=== PATIENT | male | born 1990 | race African-American/Black ===

== ENCOUNTER 2016-05-18 13:36 | Emergency (ER) | payer MEDICAID, OTHER ==
--- NOTE | 2016-05-18 14:29 | UC ---
General HPI - HPI Summary HPI Summary: Patient has had HZ, fatigue, muscle aches, chills and sweats. sore throat that has gone away. SOB on exertion, - History of Current Complaint Chief Complaint: UCRespiratory Stated Complaint: LOSS OF VOICE COLD SYMPTOMS Time Seen by Provider: 05/18/16 14:24 Hx Obtained From: Patient Onset/Duration: Sudden Onset, Lasting Days Timing: Constant Onset Severity: Mild Current Severity: Moderate Associated Signs & Symptoms: Positive: Cough, Fever, Headache, Wheezing - Allergy/Home Medications Allergies/Adverse Reactions: Allergies Allergy/AdvReac Type Severity Reaction Status Date / Time Iodine Allergy Severe Difficulty Verified 10/13/14 22:35 Breathing PMH/Surg Hx/FS Hx/Imm Hx Previously Healthy: Yes Endocrine History Of: Denies: Diabetes, Thyroid Disease Cardiovascular History Of: Denies: Cardiac Disorders, Hypertension Respiratory History Of: Reports: Asthma Denies: COPD GI/ History Of: Denies: Ulcer Other History Of: Negative For: Anticoagulant Therapy - Surgical History Surgical History: Yes Surgery Procedure, Year, and Place: right arm surgery - Family History Known Family History: Negative: Cardiac Disease, Hypertension - Social History Alcohol Use: Occasionally Substance Use Type: Marijuana Smoking Status (MU): Never Smoked Tobacco Review of Systems Constitutional: Fever, Chills, Fatigue Skin: Negative Eyes: Negative ENT: Sore Throat, Ear Ache Respiratory: Shortness Of Breath, Cough Cardiovascular: Negative Gastrointestinal: Negative Genitourinary: Negative Motor: Negative Neurovascular: Negative Musculoskeletal: Negative Neurological: Negative Psychological: Negative All Other Systems Reviewed And Are Negative: Yes Physical Exam Triage Information Reviewed: Yes Appearance: Well-Nourished, Ill-Appearing, Pain Distress Vital Signs: Initial Vital Signs Temp 97.3 F 05/18/16 14:03 Pulse 97 05/18/16 14:03 Resp 18 05/18/16 14:03 Pulse Ox 100 05/18/16 14:03 Vital Signs Reviewed: Yes Eye Exam: Normal Eyes: Positive: Conjunctiva Clear ENT Exam: Normal ENT: Positive: Pharyngeal erythema, TM bulging, TM red Dental Exam: Normal Neck exam: Normal Neck: Positive: Supple, Nontender, Enlarged Nodes @ - bilateral cervical Respiratory Exam: Normal Respiratory: Positive: Chest non-tender, No respiratory distress, No accessory muscle use, Wheezing, Inspiration Cardiovascular Exam: Normal Cardiovascular: Positive: RRR, No Murmur, Pulses Normal Abdominal Exam: Normal Abdomen Description: Positive: Nontender, No Organomegaly, Soft Bowel Sounds: Positive: Present Musculoskeletal Exam: Normal Musculoskeletal: Positive: Strength Intact, ROM Intact, No Edema Neurological Exam: Normal Neurological: Positive: Alert, Muscle Tone Normal Psychological Exam: Normal Skin Exam: Normal Course/Dx - Course Course Of Treatment: hx obtained, exam performed, meds reviewed, rapid flu negative. prednisone prescribed for wheezing. - Differential Dx - Multi-Symptom Provider Diagnoses: viral syndrome. wheezing Discharge - Discharge Plan Condition: Stable Disposition: HOME Patient Education Materials: Viral Syndrome (ED) Additional Instructions: Take the medication as prescribed. Increase your fluid intake and get plenty of rest. Tylenol and Ibuprofen for pain and fever.
== END 2016-05-18 14:41 | disposition home or self-care (01) ==
LOC: UCEAST 13:36
DX: B34.9 Viral infection, unspecified (principal); R06.2 Wheezing; F12.90 Cannabis use, unspecified, uncomplicated
CPT/HCPCS: 99212; G0463

== ENCOUNTER 2017-11-13 11:17 | Emergency (ER) | payer OTHER ==
[2017-11-13] MEDS ORDERED: Lidocaine 2.5%/Prilocain 2.5%* 5 GM TUBE TOPICAL ONE (13:16)
[2017-11-13 14:31] VITALS: BP 126/80
--- NOTE | 2017-11-13 17:26 | ED ---
Skin Complaint - HPI Summary HPI Summary: Patient's 27-year-old male presenting to the ED with a large left mass to the left side of the chin which has been present for over a month and recently enlarged this afternoon. - History of Current Complaint Chief Complaint: EDRashSkinAbscess Time Seen by Provider: 11/13/17 11:30 Stated Complaint: ABSCESS ON FACE Pain Intensity: 5 Pain Scale Used: 0-10 Numeric - Allergy/Home Medications Allergies/Adverse Reactions: Allergies Allergy/AdvReac Type Severity Reaction Status Date / Time iodine Allergy Difficulty Verified 11/13/17 11:25 Breathing shellfish derived Allergy Difficulty Verified 11/13/17 11:25 Breathing PMH/Surg Hx/FS Hx/Imm Hx Endocrine/Hematology History: Denies: Hx Anticoagulant Therapy, Hx Diabetes, Hx Thyroid Disease Cardiovascular History: Denies: Hx Hypertension, Other Cardiovascular Problems/Disorders - DENIES Respiratory History: Reports: Hx Asthma Denies: Hx Chronic Obstructive Pulmonary Disease (COPD), Other Respiratory Problems/Disorders - DENIES GI History: Denies: Hx Ulcer - Surgical History Surgery Procedure, Year, and Place: right arm surgery - Immunization History Date of Tetanus Vaccine: unknown Date of Influenza Vaccine: no Infectious Disease History: No Infectious Disease History: Denies: Hx Hepatitis, Hx Human Immunodeficiency Virus (HIV), History Other Infectious Disease, Traveled Outside the [place] in Last 30 Days - Family History Known Family History: Negative: Cardiac Disease, Hypertension - Social History Alcohol Use: Occasionally Substance Use Type: Reports: Marijuana Smoking Status (MU): Never Smoked Tobacco Physical Exam Vital Signs On Initial Exam: Initial Vitals Temp Pulse Resp BP Pulse Ox 97.5 F 92 16 156/80 99 11/13/17 11:20 11/13/17 11:20 11/13/17 11:20 11/13/17 11:20 11/13/17 11:20 Diagnostics - Vital Signs Vital Signs Temp Pulse Resp BP Pulse Ox 11/13/17 14:30 97.3 F 65 16 126/80 97 11/13/17 11:20 97.5 F 92 16 156/80 99 - Laboratory Lab Statement: Any lab studies that have been ordered have been reviewed, and results considered in the medical decision making process. Discharge - Discharge Plan Condition: Stable Disposition: HOME Prescriptions: Sulfamethox/Trimethoprim DS* [Bactrim DS 800/160 TAB*] 1 tab PO BID #14 tab MDD 2 Patient Education Materials: Abscess (ED) Referrals: Reid Saenz MD [Primary Care Provider] - Additional Instructions: as discussed, please follow-up with PCP as scheduled Bactrim twice daily 7 days Moist heat/warm compresses to the area as much as possible If any symptoms worsen, return to the ED immediately - Billing Disposition and Condition Condition: STABLE Disposition: Home
== END 2017-11-13 14:30 | disposition home or self-care (01) ==
LOC: ED 11:17
DX: L02.01 Cutaneous abscess of face (principal)
CPT/HCPCS: 99281; A9270-GY

== ENCOUNTER 2017-11-17 14:41 | Emergency (ER) | payer OTHER ==
[2017-11-17 15:01] VITALS: BP 128/79
== END 2017-11-17 15:59 | disposition left against medical advice (07) ==
LOC: ED 14:41
DX: L02.01 Cutaneous abscess of face (principal); Z53.21 Procedure and treatment not carried out due to patient leaving prior to being seen by health care provider

== ENCOUNTER 2018-04-19 07:57 | Emergency (ER) | payer OTHER ==
[2018-04-19 08:32] LABS: Influenza A Molecular POSITIVE (Negative)
[2018-04-19] MEDS ORDERED: Ketorolac INJ* 30 MG/ML 1 ML VIAL IV PUSH ONE (08:39)
[2018-04-19] MEDS ORDERED: NS 0.9% 1000 ML** 1,000 ML IV ONE (08:39)
[2018-04-19] MEDS ORDERED: Ondansetron INJ* 2 MG/ML VIAL IV ONE (08:39)
--- NOTE | 2018-04-19 09:06 | ED ---
Influenza-Like Illness - HPI Summary HPI Summary: patient is a 27-year-old male with no past significant medical history presenting to the ED with flulike symptoms. He endorses a 2 day history of diarrhea, nausea, vomiting, sweats, chills, body aches. He does endorse a mild cough with mild production. He did not receive the flu vaccine this year. He endorses some sore throat, but secondary to coughing. He denies any abdominal pain. He states symptoms are not better or worse with positioning arrest. He has been trying NyQuil, which helps him sleep, but states this does not help his body aches. He is a nonsmoker, drinks occasionally. - History of Current Complaint Chief Complaint: EDFluSymptoms Time Seen by Provider: 04/19/18 08:08 Hx Obtained From: Patient Onset/Duration: Sudden Onset Severity: Moderate Associated Signs & Symptoms: Fever, T Max - [id number], F/C, Myalgia, Cough, Sore Throat, Nasal Congestion, Headache, Vomiting Related Hx: Possible Flu/Infectious Exposure - Risk Factors Influenza Risk Factors: Negative - Allergy/Home Medications Allergies/Adverse Reactions: Allergies Allergy/AdvReac Type Severity Reaction Status Date / Time iodine Allergy Difficulty Verified 04/19/18 08:06 Breathing shellfish derived Allergy Difficulty Verified 04/19/18 08:06 Breathing Home Medications: Home Medications Dm/Acetaminophen/Doxylamine [Vicks Nyquil Cold-Flu Liquid] 30 ml PO BEDTIME PRN 04/19/18 [History Confirmed 04/19/18] PMH/Surg Hx/FS Hx/Imm Hx Previously Healthy: Yes Endocrine/Hematology History: Denies: Hx Anticoagulant Therapy, Hx Diabetes, Hx Thyroid Disease Cardiovascular History: Denies: Hx Hypertension, Other Cardiovascular Problems/Disorders - DENIES Respiratory History: Reports: Hx Asthma Denies: Hx Chronic Obstructive Pulmonary Disease (COPD), Other Respiratory Problems/Disorders - DENIES GI History: Denies: Hx Ulcer - Surgical History Surgery Procedure, Year, and Place: right arm surgery - Immunization History Date of Tetanus Vaccine: unknown Date of Influenza Vaccine: no Infectious Disease History: No Infectious Disease History: Denies: Hx Hepatitis, Hx Human Immunodeficiency Virus (HIV), History Other Infectious Disease, Traveled Outside the [place] in Last 30 Days - Family History Known Family History: Positive: Respiratory Disease Negative: Cardiac Disease, Hypertension - Social History Occupation: Employed Full-time Lives: With Family Alcohol Use: Occasionally Hx Substance Use: Yes Substance Use Type: Reports: Marijuana Hx Tobacco Use: Yes Smoking Status (MU): Former Smoker Review of Systems Positive: Fever, Chills, Fatigue, Skin Diaphoresis Negative: Blurred Vision, Diplopia, Drainage Positive: Sore Throat. Negative: Ear Ache Negative: Palpitations, Chest Pain Positive: Cough. Negative: Shortness Of Breath Positive: Vomiting, Diarrhea, Nausea. Negative: Abdominal Pain Genitourinary: Negative Positive: no symptoms reported, see HPI Positive: Myalgia. Negative: Arthralgia Negative: Rash, Bruising Negative: Headache, Weakness, Paresthesia, Numbness Psychological: Normal All Other Systems Reviewed And Are Negative: Yes Physical Exam Triage Information Reviewed: Yes Vital Signs On Initial Exam: Initial Vitals Temp Pulse Resp BP Pulse Ox 98.9 F 91 16 146/97 97 04/19/18 08:03 04/19/18 08:03 04/19/18 08:03 04/19/18 08:03 04/19/18 08:03 Vital Signs Reviewed: Yes Appearance: Positive: Well-Appearing, Well-Nourished Skin: Positive: Warm, Skin Color Reflects Adequate Perfusion, Diaphoretic Head/Face: Positive: Normal Head/Face Inspection Neck: Positive: Supple, No Lymphadenopathy Respiratory/Lung Sounds: Positive: Clear to Auscultation Cardiovascular: Positive: RRR, Pulses are Symmetrical in both Upper and Lower Extremities Musculoskeletal: Positive: Normal, Strength/ROM Intact Neurological: Positive: Speech Normal Psychiatric: Positive: Affect/Mood Appropriate Diagnostics - Vital Signs Vital Signs Temp Pulse Resp BP Pulse Ox 04/19/18 08:12 87 98 04/19/18 08:03 98.9 F 91 16 146/97 97 - Laboratory Lab Results: Lab Results 04/19/18 Range/Units 08:28 Influenza A (Rapid) Positive A (Negative) Lab Statement: Any lab studies that have been ordered have been reviewed, and results considered in the medical decision making process. Flu Symptom Course/Dx - Course Course Of Treatment: Treatment, the patient's evaluated for flulike symptoms. Influenza swab obtained and is positive. He is repleted with fluids, 1 L normal saline. Zofran given and Toradol given as well. Patient is feeling improved and is okay for discharge at this time. As symptoms have been present 48 hours +, he will not be given Tamiflu at this time. He is encouraged fluids and rest while he is given a note for work and is okay with plan and discharged. - Diagnoses Differential Diagnosis/HQI/PQRI: Positive: Influenza, Pneumonia Provider Diagnoses: Influenza A Discharge - Sign-Out/Discharge Documenting (check all that apply): Patient Departure Patient Received Moderate/Deep Sedation with Procedure: No - Discharge Plan Condition: Stable Disposition: HOME Prescriptions: Ondansetron ODT TAB* [Zofran 4 MG Odt TAB*] 4 mg PO Q6H PRN #12 tab.odt MDD 4 PRN Reason: Nausea Patient Education Materials: Influenza (ED) Forms: *Work Release Referrals: Reid Saenz MD [Primary Care Provider] - Additional Instructions: You've been diagnosed with influenza Drink plenty of fluids Tylenol and ibuprofen for discomfort and body aches Tylenol 650 mg and ibuprofen 600 mg, use these intermittently Rest as much as possible - Billing Disposition and Condition Condition: STABLE Disposition: Home
[2018-04-19 11:09] VITALS: BP 137/82
== END 2018-04-19 11:08 | disposition home or self-care (01) ==
LOC: ED 07:57
DX: J10.1 Influenza due to other identified influenza virus with other respiratory manifestations (principal); J45.909 Unspecified asthma, uncomplicated; Z88.3 Allergy status to other anti-infective agents; Z91.013 Allergy to seafood; Z87.891 Personal history of nicotine dependence
CPT/HCPCS: 36415; 86703; 96361; 96374; 96375; 99283; J1885; J2405

== ENCOUNTER 2018-04-26 10:08 | Emergency (ER) | payer OTHER ==
[2018-04-26 10:36] VITALS: BP 121/71
--- NOTE | 2018-04-26 11:03 | UC ---
Respiratory Complaint HPI - HPI Summary HPI Summary: 27-year-old male presents with complaints of persistent cough. States on 2018 he developed flulike symptoms and was evaluated by his primary care provider on 04/19/2018 and tested positive for influenza A. Reports he has been having some nausea and posttussive emesis for which his primary care provider prescribed ondansetron as needed. Patient does have a history of asthma and states that he was using his albuterol inhaler fairly regularly during the first 3-4 days of symptoms but has not needed to use in the last several days. States his fever subsided after about 4 days and his other symptoms have gradually been improving. He continues to have an occasional productive cough for yellow sputum and some mild nasal congestion. Did have an episode of posttussive emesis this morning. Denies fever, chills, sore throat, chest pain, SOB, wheezing, or abdominal pain. - History of Current Complaint Chief Complaint: UCRespiratory Stated Complaint: NAUSEA COUGH WHEEZING Time Seen by Provider: 04/26/18 10:49 Hx Obtained From: Patient Pain Intensity: 0 - Allergies/Home Medications Allergies/Adverse Reactions: Allergies Allergy/AdvReac Type Severity Reaction Status Date / Time iodine Allergy Difficulty Verified 04/26/18 10:36 Breathing shellfish derived Allergy Difficulty Verified 04/26/18 10:36 Breathing Home Medications: Home Medications Albuterol HFA INHALER* [Ventolin HFA Inhaler*] 1 puff INH DAILY PRN 04/26/18 [ History Confirmed 04/26/18] PMH/Surg Hx/FS Hx/Imm Hx Previously Healthy: Yes Respiratory History: Asthma Other History Of: Negative For: Anticoagulant Therapy - Surgical History Surgical History: Yes Surgery Procedure, Year, and Place: right arm surgery - Family History Known Family History: Positive: Respiratory Disease Negative: Cardiac Disease, Hypertension - Social History Occupation: Employed Full-time Lives: With Family Alcohol Use: Occasionally Substance Use Type: Marijuana Smoking Status (MU): Former Smoker Review of Systems All Other Systems Reviewed And Are Negative: Yes Constitutional: Negative: Fever, Chills Skin: Negative: Rash Eyes: Negative: Blurred Vision, Diplopia, Drainage, Eye Redness, Photophobia ENT: Positive: Nasal Discharge, Sinus Congestion. Negative: Sore Throat, Ear Ache, Sinus Pain/Tenderness Respiratory: Positive: Cough. Negative: Shortness Of Breath Cardiovascular: Negative: Palpitations, Chest Pain Gastrointestinal: Positive: Vomiting, Nausea. Negative: Abdominal Pain, Diarrhea Genitourinary: Positive: Negative Musculoskeletal: Positive: Negative Neurological: Positive: Negative Is Patient Immunocompromised?: No Physical Exam - Summary Physical Exam Summary: GENERAL APPEARANCE: Well developed, well nourished, alert and cooperative, and appears to be in no acute distress. EYES: Conjunctiva clear. No drainage. Small subconjunctival hemorrhage noted to the medial left eye. Vision is grossly intact. EARS: External auditory canals and tympanic membranes clear, hearing grossly intact. NOSE: Mild nasal congestion. No nasal discharge. THROAT: Pharynx normal. No tonsilar inflammation, swelling, exudate, or lesions. Uvula midline. Oral cavity normal. Teeth and gingiva in good general condition. NECK: Neck supple, non-tender without lymphadenopathy. Occasional non- productive cough. CARDIAC: Normal S1 and S2. No S3, S4 or murmurs. Rhythm is regular. There is no peripheral edema, cyanosis or pallor. Extremities are warm and well perfused. Capillary refill is less than 2 seconds. Peripheral pulses intact. LUNGS: Clear to auscultation without rales, rhonchi, wheezing or diminished breath sounds. ABDOMEN: Positive bowel sounds. Soft, nondistended, nontender. No guarding or rebound. No masses or hepatosplenomegally. MUSKULOSKELETAL: ROM intact to all extremities. No joint erythema or tenderness. Normal muscular development. Normal gait. SKIN: Skin normal color, texture and turgor with no lesions or eruptions. Triage Information Reviewed: Yes Vital Signs: Initial Vital Signs Temp 98 F 04/26/18 10:32 Pulse 87 04/26/18 10:32 Resp 17 04/26/18 10:32 BP 121/71 04/26/18 10:32 Pulse Ox 100 04/26/18 10:32 Vital Signs Reviewed: Yes Respiratory Course/Dx - Course Course Of Treatment: 27-year-old male presents with complaints of persistent cough. States on 04/17/2018 he developed flulike symptoms and was evaluated by his primary care provider on 04/19/2018 and tested positive for influenza A. Reports he has been having some nausea and posttussive emesis for which his primary care provider prescribed ondansetron as needed. Patient does have a history of asthma and states that he was using his albuterol inhaler fairly regularly during the first 3-4 days of symptoms but has not needed to use in the last several days. States his fever subsided after about 4 days and his other symptoms have gradually been improving. He continues to have an occasional productive cough for yellow sputum and some mild nasal congestion. Did have an episode of posttussive emesis this morning. Denies fever, chills, sore throat, chest pain, SOB, wheezing, or abdominal pain. Afebrile. VSS. exam reveals an adult male in no acute distress with a small subconjunctival hemorrhage of the left eye, mld nasal congestion, occassional non-productive cough, clear bilateral breath sounds, and otherwise unremarkable exam. Suspect that the lingering cough is related to some mild airway inflammation secondary to his recent illness with the flu and the emesis sounds to be post-tussive and he has no signs of dehydration or an acute abdomen. I am recommending continued symptomatic treatment at this time. Will prescribe him Tessalon Perles 1 cap every 8 hours as needed for cough. He is to continue to use the ondansetron prescribed to him by his PCP as needed. He is to follow up with his PCP in 3-5 days if symptoms do not improve. Anticipatory guidance and warning symptoms reviewed with patient. Verbalizes understanding and agrees with POC. - Differential Dx/Diagnosis Differential Diagnosis/HQI/PQRI: Bronchitis, Influenza, Lower Resp Infection, Other - URI Provider Diagnosis: URI with cough and congestion, Subconjunctival hemorrhage, History of asthma, Post-tussive vomiting Discharge - Sign-Out/Discharge Documenting (check all that apply): Patient Departure All imaging exams completed and their final reports reviewed: No Studies - Discharge Plan Condition: Stable Disposition: HOME Prescriptions: Benzonatate CAP* [Tessalon 100 MG CAP*] 100 mg PO TID PRN #30 cap PRN Reason: Cough Patient Education Materials: Subconjunctival Hemorrhage (ED), Upper Respiratory Infection (ED), Acute Nausea and Vomiting (ED) Forms: *Work Release Referrals: Reid Saenz MD [Primary Care Provider] - 3 Days (Follow up in 3-5 days if symptoms persist.) Additional Instructions: Your lung sounds were clear and exam was overall unremarkable. I suspect that your cough is some residual inflammation of the airways secondary to your recent illness with the flu. Be sure to drink plenty of fluids. Use your albuterol inhaler as directed for any shortness of breath, wheezing, or coughing fits. Take Tessalon Perles 1 cap every 8 hours as needed for cough. You may continue to use the ondansetron (Zofran) that was prescribed to you by your primary care provided as needed for nausea or vomiting. Follow up with your primary care provider in 3-5 days if symptoms persist. Seek immediate medical attention in the emergency room if you develop fever greater than 100.5 F, have chest pain, shortness of breath, your are coughing up blood, abdominal pain, persistent or projectile vomiting, blood in your vomit , or any worsening of symptoms. - Billing Disposition and Condition Condition: STABLE Disposition: Home
== END 2018-04-26 11:25 | disposition home or self-care (01) ==
LOC: UCEAST 10:08
DX: J06.9 Acute upper respiratory infection, unspecified (principal); R05 Cough; R09.81 Nasal congestion; J45.909 Unspecified asthma, uncomplicated; R11.10 Vomiting, unspecified; H11.32 Conjunctival hemorrhage, left eye; Z87.891 Personal history of nicotine dependence; Z91.013 Allergy to seafood; Z88.8 Allergy status to other drugs, medicaments and biological substances
CPT/HCPCS: 99212; G0463

== ENCOUNTER 2018-08-30 12:26 | Emergency (ER) | payer OTHER ==
[2018-08-30 13:00] VITALS: BP 119/61
--- NOTE | 2018-08-30 14:25 | UC ---
Eye Complaint HPI - HPI Summary HPI Summary: Pt presents with reddness and drainage to left eye. Pt wear glasses, no contact. + yellow crust this am. + itchy, drainage., No vision changes "except when tearing" No fever, chills No B[place] no n/v/d, no eye surgery no sinus congestion, ear congestion no foreign body medications reviewed - History of Current Complaint Chief Complaint: UCEye Stated Complaint: EYE COMPLAINT Time Seen by Provider: 08/30/18 14:24 Hx Obtained From: Patient Pain Intensity: 0 - Allergies/Home Medications Allergies/Adverse Reactions: Allergies Allergy/AdvReac Type Severity Reaction Status Date / Time iodine Allergy Difficulty Verified 08/30/18 13:00 Breathing shellfish derived Allergy Difficulty Verified 08/30/18 13:00 Breathing PMH/Surg Hx/FS Hx/Imm Hx Previously Healthy: Yes Other History Of: Negative For: Anticoagulant Therapy - Surgical History Surgical History: Yes Surgery Procedure, Year, and Place: right arm surgery - Family History Known Family History: Positive: Respiratory Disease, Non-Contributory Negative: Cardiac Disease, Hypertension - Social History Occupation: Employed Full-time - [employer] Lives: With Family Alcohol Use: Occasionally Substance Use Type: Marijuana Substance Use Comment - Amount & Last Used: daily Smoking Status (MU): Former Smoker Review of Systems All Other Systems Reviewed And Are Negative: Yes Constitutional: Positive: Negative Skin: Positive: Negative Eyes: Positive: Drainage, Eye Redness ENT: Positive: Negative Respiratory: Positive: Negative Physical Exam - Summary Physical Exam Summary: Vital Signs Reviewed: Yes A+Ox3, no distress Eyes: MEENAKSHI, EOM intact and full, left ++ injection, + inflammation of mucosa, scant yellow drainage, no photophobia crisp fundoscopic right eye wnl ENT: Hearing grossly normal TM x 2 clear mmmoist no exudate no eryteham neck: supple Respiratory: Positive: No respiratory distress, No accessory muscle use Cardiovascular: skin color reflect adequate perfusion Musculoskeletal Exam: BANKS x 4 without difficulty Neurological: Positive: Alert, ambulatory without difficulty Psychological: Positive: Normal Response To proivder Skin: Positive: no rash, no ecchymosis Triage Information Reviewed: Yes Vital Signs: Initial Vital Signs Temp 98.3 F 08/30/18 12:56 Pulse 61 08/30/18 12:56 Resp 18 08/30/18 12:56 BP 119/61 08/30/18 12:56 Pulse Ox 100 08/30/18 12:56 Eye Complaint Course/Dx - Course Course Of Treatment: Pt with left eye injection and yellow drainage since this morning, itching VSS pt with injection and inflammation -of left eye will treat conjuncitivitis d/w pt secretion precautions, copious hand washing, return precautions work note d/w pt worsening sx -referral to ophthomologist pt comfortable and in agreement with plan - Differential Dx/Diagnosis Provider Diagnosis: Conjunctivitis Discharge - Sign-Out/Discharge Documenting (check all that apply): Patient Departure All imaging exams completed and their final reports reviewed: No Studies - Discharge Plan Condition: Stable Disposition: HOME Prescriptions: Albuterol HFA INHALER* [Ventolin HFA Inhaler*] 2 puff INH Q4H PRN #1 mdi PRN Reason: wheeze Polymyx/Trimethoprim OPTH* [Polytrim OPHTH*] 2 drop BOTH EYES TID #1 btl Patient Education Materials: Medicine Refill (ED), Conjunctivitis (ED) Forms: *Work Release Referrals: [facility] [place] [facility] [Outside] Sammy Carpenter MD [Medical Doctor] - Additional Instructions: - apply eye ointment to affected every 3 times a day for the next 5 days - okay to alternate ibuprofen (Advil, Motrin) 600mg and tylenol every 3 hours if needed for pain - wash your hands thorough before and after applying eye drops - If you develop increased drainage, fever, headache, pain or any other concerns it is recommended you contact the eye doctor to schedule a folllow-up, recheck appointment -contact the member service specialist to schedule a follow-up or if you have any questions or concerns - Billing Disposition and Condition Condition: STABLE Disposition: Home
== END 2018-08-30 14:50 | disposition home or self-care (01) ==
LOC: UCEAST 12:26
DX: H10.9 Unspecified conjunctivitis (principal)
CPT/HCPCS: 99211; G0463